=== PATIENT | female | born 1950 | race Hispanic/Latino ===

== ENCOUNTER 2017-01-16 14:44 | Observation (INO) | payer OTHER ==
[~2017-01-16] VITALS: Ht 160 cm; Wt 65.3 kg
[2017-01-16 15:09] LABS: POINT-OF-CARE METER ID UU13113702
[2017-01-16 16:30] LABS: BASOPHIL COUNT 0.1 K/uL (0-0.1); EOSINOPHIL (%) 0.2 % (0-5); HEMATOCRIT 44.2 % (36.0-46.0); IMMATURE GRANULOCYTE (%) 0.4 % (0.0-0.7); IMMATURE GRANULOCYTE COUNT 0.1 K/uL; INSTRUMENT ABS NEUTROPHIL CT 14.5 K/uL; LYMPHOCYTE COUNT 0.8 K/uL (1.0-2.8); MCH 29.4 PG (29.0-34.0); MCHC 33.5 G/DL (30.0-36.0); MCV 87.7 FL (83-99); MEAN PLAT.VOLUME 9.8 uM^3 (9.5-12.4); MONOCYTE (%) 3.9 % (3-12); MONOCYTE COUNT 0.6 K/uL (0-0.8); NEUTROPHIL COUNT 14.5 K/uL (1.8-6.4); PLATELET COUNT 308 K/uL (156-360); RBC DIS.WIDTH-SD 41.9 % (39-53); RED BLOOD COUNT 5.04 M/uL (3.80-5.20); WHITE BLOOD COUNT 16.1 K/uL (4.1-10.2)
[2017-01-16 16:38] LABS: CHLORIDE 106 mEq/L (99-109); SODIUM 139 mEq/L (136-147)
[2017-01-16 16:39] LABS: GLUCOSE 151 mg/dL (70-99)
[2017-01-16 16:41] LABS: ANION GAP 10 MEQ/L (2-14)
[2017-01-16 16:43] LABS: GFR ESTIMATE (CALCULATED) 52 mL/min/
[2017-01-16 16:44] LABS: UREA NITROGEN (BUN) 27 mg/dL (9-23)
[2017-01-16 16:50] LABS: TROP-I INTERPRETATION NEGATIVE; TROPONIN-I < 0.01 ng/mL (0.0-0.30)
[2017-01-16 17:32] LABS: ADD MIUA? YES; BILIRUBIN NEGATIVE; BLOOD NEGATIVE; COLOR YELLOW ((YELLOW)); GLUCOSE (STRIP) 50; KETONES 5; LEUKOCYTES NEGATIVE; NITRITE NEGATIVE; PROTEIN (STRIP) 30; SPECIFIC GRAVITY 1.018 (1.000-1.030); UROBILINOGEN 0.2 MG/DL (0.2-1.0)
[2017-01-16 18:06] LABS: BACTERIA RARE /HPF; EPITHELIAL CELLS RARE /HPF; MUCUS 3+ /LPF; UCUL ADDED? NO
[2017-01-16] MEDS ORDERED: ENALAPRIL MALEA10 MG PO (19:08)
[2017-01-16] MEDS ORDERED: CINNAMON500 MG PO (19:08)
[2017-01-16] MEDS ORDERED: NITROGLYCERIN0.4 MG SL (19:08)
[2017-01-16] MEDS ORDERED: ATENOLOL25 MG PO (19:08)
[2017-01-16 21:08] VITALS: BP 144/79
[2017-01-16 21:18] LABS: D-DIMER ELISA 0.68 mg/L FEU (< 0.57)
[2017-01-16 23:18] LABS: TROP-I INTERPRETATION NEGATIVE; TROPONIN-I < 0.01 ng/mL (0.0-0.30)
[2017-01-16 23:51] VITALS: BP 125/69
[2017-01-17 04:47] VITALS: BP 131/78
[2017-01-17 05:38] LABS: TROP-I INTERPRETATION NEGATIVE; TROPONIN-I < 0.01 ng/mL (0.0-0.30)
[2017-01-17 06:12] LABS: BASOPHIL COUNT 0.1 K/uL (0-0.1); EOSINOPHIL (%) 1.3 % (0-5); EOSINOPHIL COUNT 0.1 K/uL (0-0.3); HEMATOCRIT 36.1 % (36.0-46.0); IMMATURE GRANULOCYTE (%) 0.3 % (0.0-0.7); INSTRUMENT ABS NEUTROPHIL CT 6.8 K/uL; MCH 29.3 PG (29.0-34.0); MCV 88.9 FL (83-99); MEAN PLAT.VOLUME 10.3 uM^3 (9.5-12.4); MONOCYTE (%) 8.3 % (3-12); MONOCYTE COUNT 0.8 K/uL (0-0.8); NEUTROPHIL (%) 69.4 % (45-76); NEUTROPHIL COUNT 6.8 K/uL (1.8-6.4); PLATELET COUNT 258 K/uL (156-360); RBC DIS.WIDTH-CV 13.2 % (11.8-14.6); RBC DIS.WIDTH-SD 43.3 % (39-53); RED BLOOD COUNT 4.06 M/uL (3.80-5.20)
[2017-01-17 06:14] LABS: WHITE BLOOD COUNT 9.9 K/uL (4.1-10.2)
[2017-01-17 06:27] LABS: ALKALINE PHOSPHATASE 58 IU/L (3-129); ANION GAP 8 MEQ/L (2-14); CHLORIDE 106 MEQ/L (99-109); GFR ESTIMATE (CALCULATED) 59 mL/min/; GLUCOSE 119 mg/dL (70-99); POTASSIUM 4.1 MEQ/L (3.7-5.4); SAMPLE HEMOLYSIS CHECK 0; SAMPLE ICTERIC CHECK 0; SAMPLE LIPEMIA CHECK 0; SODIUM 140 MEQ/L (136-147); TOTAL BILIRUBIN 0.3 MG/DL (0.0-1.0); UREA NITROGEN (BUN) 36 mg/dL (9-23)
[2017-01-17 08:35] VITALS: BP 137/79
[2017-01-17] MEDS ORDERED: ATENOLOL50 MG PO (10:11)
[2017-01-17] MEDS ORDERED: ENALAPRIL MALEA10 MG PO (10:12)
[2017-01-17] MEDS ORDERED: NITROGLYCERIN0.4 MG SL (10:14)
[2017-01-17] MEDS ORDERED: ASPIR-LOW81 MG PO (11:17)
[2017-01-18 08:36] LABS: Estimated Average Glucose 134 mg/dL (70-123); HEMOGLOBIN A1c (GLYCOHEMOGLOB) 6.3 % HGB (Below 5.7)
== END 2017-01-17 13:13 | disposition home or self-care (01) ==
LOC: EME 14:44 → EDOF 19:41 → 5WEST 20:58
PROVIDERS: Emergency Medicine; Internal Medicine
DX: R07.9 Chest pain, unspecified (principal); R55 Syncope and collapse; N17.9 Acute kidney failure, unspecified; I10 Essential (primary) hypertension; R73.9 Hyperglycemia, unspecified; I51.7 Cardiomegaly
CPT/HCPCS: 70450; 71010; 80048; 80053; 81003; 82948; 83036; 84484; 85025; 85379; 93005; 99281; 99285; G0378; J1885; J7030; J7040